=== PATIENT | male | born 1955 | race Caucasian/White ===

== ENCOUNTER 2017-08-27 19:34 | Emergency (ER) | payer MEDICARE ==
[~2017-08-27] VITALS: Ht 182.9 cm; Wt 129.3 kg
[~2017-08-27 19:34] MED LIST: ACET500T33 PO; ASPI-482 PO; ATOR10TA PO; CLON1PAT TD; CYCL-331 PO; DULO30CA2 PO; FURO-68 PO; GABA-586 PO; HYDR50CA2 PO; INSU100I13 SQ; LIRA0.6P2 SQ; MECL12.52 PO; METO25TA4 PO; POTA10CA PO; TRAM50TA PO; TRAZ-90 PO
--- NOTE | 2017-08-27 19:52 | ED.ADGEN ---
Past History Past Medical History: CHF, Diabetes, Other Past Surgical History: Other Alcohol Use: None Drug Use: Opiates Adult General Chief Complaint Chief Complaint " I just got out [facility].. I still feel like I got the flu... they tested me and it was negative... " HPI HPI Patient is a 62 year old male who presents with above hx and complaints viral presentation. Recent admit to [facility] for Brown recluse, and DVT. Pt. recent on set myalgia and arthralgia and malaise. Patient is diabetic. Follows with Dr. Simpson. Review of Systems Review of Systems Constitutional: Objective history of fever or chills [] Eyes: Denies change in visual acuity, redness, or eye pain [] HENT: History of nasal congestion Respiratory: History of nonproductive cough and wheezing] Cardiovascular: No additional information not addressed in HPI [] GI: Denies abdominal pain, , vomiting, bloody stools or diarrhea []complains of generalized nausea : Denies dysuria or hematuria [] Musculoskeletal: Complaints of generalized discomfort, myalgia, arthralgia. Integument: Denies rash or skin lesions []. History of right groin brown recluse spider bite Neurologic: Denies headache, focal weakness or sensory changes [] Endocrine: Denies polyuria or polydipsia [] All other systems were reviewed and found to be within normal limits, except as documented in this note. Current Medications Current Medications Current Medications Medications (Trade) Dose Ordered Sig/Aleshia Start Time Stop Time Status Last Admin Dose Admin Famotidine (Pepcid Vial) 20 mg 1X ONCE 08/27/17 20:45 08/27/17 20:46 DC 08/27/17 21:19 20 MG Lorazepam (Ativan) 2 mg 1X ONCE 08/27/17 22:30 08/27/17 22:31 DC 08/27/17 22:18 2 MG Ondansetron HCl (Zofran) 8 mg 1X ONCE 08/27/17 20:45 08/27/17 20:46 DC 08/27/17 21:17 8 MG Sodium Chloride 1,000 ml @ 1,000 mls/hr Q1H 08/27/17 20:17 08/27/17 21:16 DC 08/27/17 21:16 1,000 MLS/HR Allergies Allergies Allergies Coded Allergies Type Severity Reaction Last Updated Verified Insulin Regular Adverse Reaction Mild vomiting 04/30/14 Yes Physical Exam Physical Exam Constitutional: Well developed, well nourished, no acute distress, non-toxic appearance. [] HENT: Normocephalic, atraumatic, bilateral external ears normal, oropharynx moist, no oral exudates, nose normal. [] Eyes: PERRLA, EOMI, conjunctiva normal, no discharge. [] Neck: Normal range of motion, no tenderness, supple, no stridor. [] Cardiovascular:Heart rate regular rhythm, no murmur [] Lungs & Thorax: Bilateral breath sounds clear to auscultation [] Abdomen: Bowel sounds normal, soft, no tenderness, no masses, no pulsatile masses. [] Skin: Warm, dry, no erythema, no rash. [] Back: No tenderness, no CVA tenderness. [] Extremities: No tenderness, no cyanosis, no clubbing, ROM intact, no edema. [] Neurologic: Alert and oriented X 3, normal motor function, normal sensory function, no focal deficits noted. [] Psychologic: Affect normal, judgement normal, mood normal. [] Current Patient Data Vital Signs Vital Signs Date Time Temp Pulse Resp B/P (MAP) Pulse Ox O2 Delivery O2 Flow Rate FiO2 08/28/17 02:05 98.1 88 20 134/74 (94) 98 Room Air Lab Results Laboratory Tests Test 08/27/17 22:12 08/27/17 22:45 White Blood Count 8.3 x10^3/uL (4.0-11.0) Red Blood Count 4.57 x10^6/uL (4.30-5.70) Hemoglobin 13.0 g/dL (13.0-17.5) Hematocrit 38.5 % (39.0-53.0) L Mean Corpuscular Volume 84 fL (79-100) Mean Corpuscular Hemoglobin 29 pg (25-35) Mean Corpuscular Hemoglobin Concent 34 g/dL (31-37) Red Cell Distribution Width 13.8 % (11.5-14.5) Platelet Count 301 x10^3/uL (140-400) Neutrophils (%) (Auto) 65 % (31-73) Lymphocytes (%) (Auto) 26 % (24-48) Monocytes (%) (Auto) 4 % (0-9) Eosinophils (%) (Auto) 3 % (0-3) Basophils (%) (Auto) 1 % (0-3) Neutrophils # (Auto) 5.5 x10^3uL (1.8-7.7) Lymphocytes # (Auto) 2.2 x10^3/uL (1.0-4.8) Monocytes # (Auto) 0.4 x10^3/uL (0.0-1.1) Eosinophils # (Auto) 0.3 x10^3/uL (0.0-0.7) Basophils # (Auto) 0.1 x10^3/uL (0.0-0.2) Prothrombin Time 43.7 SEC (9.4-11.4) H Prothrombin Time INR 4.4 (0.9-1.1) H PTT 42 SEC (23-33) H Sodium Level 141 mmol/L (136-145) Potassium Level 3.5 mmol/L (3.5-5.1) Chloride Level 103 mmol/L (98-107) Carbon Dioxide Level 30 mmol/L (21-32) Anion Gap 8 (6-14) Blood Urea Nitrogen 23 mg/dL (8-26) Creatinine 0.9 mg/dL (0.7-1.3) Estimated GFR (Cockcroft-Gault) 86.1 Glucose Level 133 mg/dL (70-99) H Calcium Level 8.9 mg/dL (8.5-10.1) Total Bilirubin 0.3 mg/dL (0.2-1.0) Direct Bilirubin 0.1 mg/dL (0.0-0.2) Aspartate Amino Transferase (AST) 17 U/L (15-37) Alanine Aminotransferase (ALT) 24 U/L (16-63) Alkaline Phosphatase 73 U/L (46-116) Troponin I Quantitative < 0.017 ng/mL (0-0.055) Total Protein 7.6 g/dL (6.4-8.2) Albumin 3.4 g/dL (3.4-5.0) Lipase 36 U/L (73-393) L Urine Collection Type Unknown Urine Color Yellow Urine Clarity Clear Urine pH 7.5 Urine Specific [place] 1.020 Urine Protein 30 mg/dl (NEG-TRACE) Urine Glucose (UA) 100 mg/dL (NEG) Urine Ketones (Stick) Trace mg/dL (NEG) Urine Blood Trace (NEG) Urine Nitrite Neg (NEG) Urine Bilirubin Neg (NEG) Urine Urobilinogen Dipstick 1 mg/dL (0.2 mg/dL) Urine Leukocyte Esterase Neg (NEG) Urine RBC Occ /HPF (0-2) Urine WBC 0 /HPF (0-4) Urine Squamous Epithelial Cells Few /LPF Urine Bacteria Few /HPF (0-FEW) EKG EKG My interpretation of EKG shows sinus 75, Lt axis, no acute cardiopulmonary changes. [] Radiology/Procedures Radiology/Procedures My interpretation of acute abd. cardiomegaly , no large infiltrate, non- specific bowel gas pattern.[] Course & Med Decision Making Course & Med Decision Making Pertinent Labs and Imaging studies reviewed. (See chart for details). Patient's stay on a clear fluid diet only for the next couple days. Take Tylenol and ibuprofen as needed for discomfort. Patient take Zofran 8 mg up 4 times a day for nausea. Patient follow-up primary care. [] Final Impression Final Impression 1. Viral syndrome 2. DM[] 3. Mild Dehydration 4. Elevated INR Problems: Dragon Disclaimer Dragon Disclaimer This electronic medical record was generated, in whole or in part, using a voice recognition dictation system. OMA CANNON MD Aug 27, 2017 19:52
[2017-08-27] MEDS ORDERED: IV NORMAL SALINE 1,000ML 1,000 ML IV SCH (20:17)
[2017-08-27] MEDS ORDERED: ONDANSETRON PF 4 MG/2 ML VIAL. IV ONE (20:45)
[2017-08-27] MEDS ORDERED: FAMOTIDINE 20 MG/2 ML VIAL IVP ONE (20:45)
--- NOTE | 2017-08-27 22:02 | EKG ---
[address] [address] Test Date: 2017-08-27 Test Time: 21:58:28 Pat Name: ANIL LUI Department: Room: Gender: M Senior Business Process Analyst: GILES : 1955 Requested By: OMA CANNON Order Number: [id number] Reading MD: Measurements Intervals [place] Rate: 75 P: 32 SC: 182 QRS: 0 QRSD: 76 T: 5 QT: 408 QTc: 458 Interpretive Statements SINUS RHYTHM LEFTWARD AXIS OTHERWISE NORMAL ECG RI6.01 Unconfirmed report Compared to ECG 05/01/2014 00:03:47 Left-axis deviation now present
[2017-08-27] MEDS ORDERED: LORazepam 2 MG/ML VIAL IV ONE (22:30)
[2017-08-27 22:32] LABS: BASO # 0.1 x10^3/uL (0.0-0.2); BASO % 1 % (0-3); EOS # 0.3 x10^3/uL (0.0-0.7); EOS % 3 % (0-3); HEMATOCRIT 38.5 % (39.0-53.0); LYMPH # 2.2 x10^3/uL (1.0-4.8); LYMPH % 26 % (24-48); MEAN CORPUSCULAR HEMOGLOBIN 29 pg (25-35); MEAN CORPUSCULAR HGB CONC 34 g/dL (31-37); MEAN CORPUSCULAR VOLUME 84 fL (79-100); MONO # 0.4 x10^3/uL (0.0-1.1); MONO % 4 % (0-9); NEUT # 5.5 x10^3uL (1.8-7.7); NEUT % 65 % (31-73); PLATELET COUNT 301 x10^3/uL (140-400); RED BLOOD COUNT 4.57 x10^6/uL (4.30-5.70); RED CELL DISTRIBUTION WIDTH 13.8 % (11.5-14.5); WHITE BLOOD COUNT 8.3 x10^3/uL (4.0-11.0)
[2017-08-27 22:48] LABS: ALBUMIN 3.4 g/dL (3.4-5.0); CALCIUM 8.9 mg/dL (8.5-10.1); CREATININE 0.9 mg/dL (0.7-1.3); DIRECT BILIRUBIN 0.1 mg/dL (0.0-0.2); GFR 86.1; POTASSIUM 3.5 mmol/L (3.5-5.1); TOTAL BILIRUBIN 0.3 mg/dL (0.2-1.0); TOTAL PROTEIN 7.6 g/dL (6.4-8.2)
[2017-08-28 00:07] LABS: BILIRUBIN,URINE NEG (NEG); CLARITY,URINE CLEAR; COLOR,URINE YELLOW; GLUCOSE,URINE 100 mg/dL (NEG)
[2017-08-28 00:08] LABS: BACTERIA,URINE FEW /HPF (0-FEW); NITRITE,URINE NEG (NEG); RBC,URINE OCC /HPF (0-2); SQUAMOUS EPITHELIAL CELL,UR FEW /LPF; UROBILINOGEN,URINE 1 mg/dL (0.2 mg/dL); WBC,URINE 0 /HPF (0-4)
[2017-08-28] MEDS ORDERED: ONDA8TAB12 PO (01:11)
[2017-08-28] MEDS ORDERED: HYDR-79 PO (01:11)
[2017-08-28 02:05] VITALS: BP 134/74
--- NOTE | 2017-08-28 08:04 | RAD ---
EXAM: Abdominal Series , 3 views. HISTORY: Pain. COMPARISON: 04/30/2014. FINDINGS: A frontal view of the chest and frontal upright and supine views of the abdomen are obtained. There is no infiltrate, effusion or pneumothorax. The heart is normal in size. There is gas and stool within the colon. No abnormally dilated air-filled loop of bowel is seen. There is no free air. IMPRESSION: 1. No acute pulmonary finding. 2. Nonobstructive bowel gas pattern.
== END 2017-08-28 02:05 | disposition home or self-care (01) ==
LOC: ER 19:34
DX: B34.9 Viral infection, unspecified (principal); E86.0 Dehydration; E11.9 Type 2 diabetes mellitus without complications; I50.9 Heart failure, unspecified; R79.1 Abnormal coagulation profile; F11.10 Opioid abuse, uncomplicated; Z88.8 Allergy status to other drugs, medicaments and biological substances
CPT/HCPCS: 36415; 74022; 80048; 80076; 81001; 83690; 84484; 85025; 85610; 85730; 93005; 96361; 96374; 96375; 99285; J2060; J2405; S0028; J7030